=== PATIENT | female | born 1970 | race African-American/Black ===

== ENCOUNTER 2017-11-12 08:51 | Emergency (ER) | payer OTHER ==
[~2017-11-12] VITALS: Ht 162.6 cm; Wt 63.5 kg
[~2017-11-12 08:51] MED LIST: BACTRIM DS TAB1 EACH PO; FENOFIBRATE145 M1 PO; FLUCONAZOLE100 M1 PO; GLIMEPIRIDE4 M1 PO; METFORMIN HCL1000 M1 PO; TRADJENTA5 M1 PO
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
[2017-11-12] MEDS ORDERED: METFORMIN HCL500 M2 PO (09:25)
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
[2017-11-12 10:03] VITALS: BP 125/79
== END 2017-11-12 10:04 ==
LOC: ERH 08:51
DX: S90.32XA Contusion of left foot, initial encounter (principal); W20.8XXA Other cause of strike by thrown, projected or falling object, initial encounter; Y92.9 Unspecified place or not applicable; Y93.9 Activity, unspecified
CPT/HCPCS: 73630-LT; 90471